=== PATIENT | male | born 1995 | race African-American/Black ===

== ENCOUNTER 2023-01-12 09:08 | Outpatient (CLI) | payer OTHER | END 2023-01-12 09:09 | disposition home or self-care (01) | LOC: CSHRAD 09:08 | PROVIDERS: ATTEND Surgery | DX: S12.300D Unspecified displaced fracture of fourth cervical vertebra, subsequent encounter for fracture with routine healing (principal); M43.12 Spondylolisthesis, cervical region | CPT/HCPCS: 72040 ==